=== PATIENT | female | born 1970 ===

== ENCOUNTER → 2024-11-22 11:34 | Outpatient (REF) | payer BC, SELFPAY | LOC: ANHLAB 11:34 | PROVIDERS: Visit Provider Plastic Surgery | DX: R22.0 Localized swelling, mass and lump, head (principal); L72.3 Sebaceous cyst | CPT/HCPCS: 88305 ==

== ENCOUNTER → 2025-01-03 12:09 | Outpatient (REF) | payer BC, SELFPAY | LOC: ANHLAB 12:09 | PROVIDERS: Visit Provider Plastic Surgery | DX: L72.0 Epidermal cyst (principal) | CPT/HCPCS: 88305 ==

== ENCOUNTER → 2025-01-11 11:32 | Outpatient (REF) | payer BC, SELFPAY ==
--- NOTE | 2025-01-11 11:32 | S_PTH ---
PATIENT: Urmila Romero LOC: [facility] #:[id number] AGE/SX: 54/F ROOM: RE01/11/[address]: Erin Vera MD : 1970 BED: DIS: SPEC #: [id number] RECD: 01/11/25 12:16 STATUS: JAYJAY LINCOLN #: [id number] MORIAH: 01/11/25 11:[address]: Erin Vera DEPT: [facility] Surgical RECD BY: Soniya Arcos Tissues: A - Cyst Procedures: Hematoxylin and Eosin Stain Gross and Microscopic Level 4
== END ==
LOC: ANHLAB 11:32
PROVIDERS: Visit Provider Plastic Surgery
DX: L72.0 Epidermal cyst (principal)
CPT/HCPCS: 88305